=== PATIENT | male | born 1945 | race Two or more races ===

== ENCOUNTER 2017-06-13 13:49 | Emergency (ER) | payer OTHER, MEDICAID ==
[~2017-06-13 13:49] MED LIST: AMLO5TAB2 PO; ASPI81TA27 PO; ENAL2.5T PO; MULT-576 OR
== END 2017-06-13 15:20 | disposition left against medical advice (07) ==
LOC: ER 13:49
DX: R35.0 Frequency of micturition (principal); Z53.21 Procedure and treatment not carried out due to patient leaving prior to being seen by health care provider